=== PATIENT | male | born 1970 | race Two or more races ===

== ENCOUNTER 2024-11-04 11:12 | Emergency (ER) | payer MEDICAID ==
[~2024-11-04] VITALS: Ht 165.1 cm; Wt 77.0 kg
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
[2024-11-04 11:48] LABS: Basophils # (auto) 0.1 10 ^3/uL (0-0.2); Basophils % (auto) 0.8 % (0.0-2.0); Eosinophils # (auto) 0.3 10 ^3/uL (0-0.8); Eosinophils % (auto) 2.6 % (0.0-7.0); Hematocrit 50.2 % (41.0-53.0); Hemoglobin 17.3 g/dL (13.5-17.5); Lymphocytes # (auto) 5.6 10 ^3/uL (0.4-5.4); Lymphocytes % (auto) 41.9 % (10.0-50.0); Mean Corpuscular Hemoglobin 30.8 pg (28.0-32.0); Mean Corpuscular Hgb Conc. 34.5 g/dL (32.0-36.0); Mean Corpuscular Volume 89.4 fL (80.0-100.0); Monocytes # (auto) 0.9 10 ^3/uL (0-1.3); Neutrophils # (auto) 6.4 10 ^3/uL (1.6-8.6); Neutrophils % (auto) 47.7 % (37.0-80.0); Nucleated Red Blood Cells % 0.2 %; Platelet Count (auto) 293 10^3/uL (140-450); Red Blood Cells 5.62 10^6/uL (4.5-5.90); Red Cell Distribution Width 13.5 % (11.8-14.3); White Blood Cell 13.5 10^3/uL (4.4-10.8)
[2024-11-04 12:02] LABS: Alanine Aminotransferase 19 U/L (7-40); Albumin 4.5 g/dL (3.2-4.8); Alkaline Phosphatase 93 U/L (46-116); Anion Gap 16 (5-15); Aspartate Aminotransferase 17 U/L (13-40); BUN/Creatinine Ratio 11.1 (10.0-20.0); Blood Urea Nitrogen 12 mg/dL (9-23); Calcium 9.6 mg/dL (8.7-10.4); Sodium 143 mmol/L (136-145); Total Protein 7.3 g/dL (5.7-8.2)
[2024-11-04 12:03] LABS: Bilirubin, Total 0.9 mg/dL (0.2-1.0)
[2024-11-04 12:09] LABS: Carbon Dioxide 19 mmol/L (20-31); Chloride 108 mmol/L (98-107); Glucose 146 mg/dL (74-106); Potassium 2.8 mmol/L (3.5-5.1)
[2024-11-04 12:10] VITALS: PULSE 84; RESP 20; O2SAT 98
[2024-11-04] MEDS: MECLIZINE HCL 25 MG TAB PO ONE (12:10)
[2024-11-04] MEDS: ONDANSETRON HCL 4 MG/2 ML VIAL IV ONE (12:11)
[2024-11-04] MEDS: SODIUM CHLORIDE 0.9% 1,000 ML IV ONE (12:12)
[2024-11-04] MEDS ORDERED: SODIUM CHLORIDE 0.9% 1,000 ML IV ONE (12:15)
[2024-11-04] MEDS: POTASSIUM CHL 20 Meq TABLET PO ONE (12:49)
[2024-11-04 13:29] LABS: Urine Bacteria FEW /hpf (None Seen); Urine Blood Negative /uL (Negative); Urine Clarity Clear (Clear); Urine Color Light-Yellow (Yellow); Urine Mucus FEW (None Seen); Urine Protein, UAD Negative (Negative); Urine Specific Gravity 1.017 (1.001-1.035); Urine Squamous Epithelial Cell FEW /hpf (<5); Urine Urobilinogen Normal (Negative); Urine WBC 3 /HPF (0-3)
[2024-11-04] MEDS: SODIUM CHLORIDE 0.9% 500 ML IV ONE (13:46)
[2024-11-04 16:40] LABS: Alanine Aminotransferase 23 U/L (7-40); Albumin 4.3 g/dL (3.2-4.8); Alkaline Phosphatase 89 U/L (46-116); Anion Gap 8 (5-15); Aspartate Aminotransferase 22 U/L (13-40); BUN/Creatinine Ratio 10.8 (10.0-20.0); Blood Urea Nitrogen 10 mg/dL (9-23); Calcium 9.2 mg/dL (8.7-10.4); Carbon Dioxide 26 mmol/L (20-31); Potassium 4.2 mmol/L (3.5-5.1); Sodium 142 mmol/L (136-145); Total Protein 6.9 g/dL (5.7-8.2)
[2024-11-04 16:41] LABS: Bilirubin, Total 0.8 mg/dL (0.2-1.0)
[2024-11-04 16:42] LABS: Chloride 108 mmol/L (98-107); Glucose 109 mg/dL (74-106)
[2024-11-04] MEDS: cefTRIAXone 1GM/50ML D5W 50 ML IV ONE (16:43)
[2024-11-04 16:46] VITALS: BP 125/80; PULSE 89; RESP 18; TEMP 98.5; O2SAT 99
[2024-11-04] MEDS ORDERED: NITR-87 PO (16:57)
[2024-11-04] MEDS ORDERED: MECL1TAB42 PO (16:57)
[2024-11-04] MEDS ORDERED: ZOFR4T PO (16:57)
--- NOTE | 2024-11-04 18:07 | ECG ---
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
== END 2024-11-04 17:32 | disposition home or self-care (01) ==
LOC: EDBD 11:12 → ER 11:20
DX: E87.6 Hypokalemia (principal); N39.0 Urinary tract infection, site not specified; K21.9 Gastro-esophageal reflux disease without esophagitis; Z98.890 Other specified postprocedural states
CPT/HCPCS: 36415; 80053; 81001; 83735; 84484; 85025; 93005; 96361; 96365; 96375; 99284; J0696; J2405; J7030; J7040; J8597